=== PATIENT | male | born 1950 | race Caucasian/White ===

== ENCOUNTER 2024-02-04 14:39 | Inpatient (IN) ==
[2024-02-04] MEDS: oxyCODONE IR 5 MG TABLET PO ONE (16:42)
[2024-02-04] MEDS: ACETAMINOPHEN 325 MG TABLET PO ONE (16:42)
[2024-02-04 17:29] LABS: Appearance,Urine Cloudy (Clear); Bilirubin,Urine Negative (Negative); Color,Urine Yellow; Culture Indicated,Urine No; Glucose,Urine (UA) Negative (Negative); Ketones,Urine Negative (Negative); Leukocyte Esterase,Urine Small /uL (Negative); Nitrate,Urine Negative (Negative); PH,Urine 5.5 (5.0-9.0); Protein,Urine Negative (Negative); Specific Gravity,Urine 1.015 (1.000-1.035); Urine Blood Negative ery/mcL (Negative); Urine Hyaline Cast 16 /lph (0-2); Urine RBC 1 /hpf (0-3); Urine Squamous Epithelial Cell 6 /hpf (0-4); Urine WBC 5 /hpf (0-4); Urobilinogen,Urine Normal
[2024-02-04 17:31] LABS: Basophils # (Auto) 0.04 K/mcL (0.00-0.30); Basophils % (Auto) 0.3 % (0.0-2.0); Eosinophils # (Auto) 0.01 K/mcL (0.00-0.70); Eosinophils % (Auto) 0.1 % (0.0-7.0); Hematocrit 42.9 % (40.1-51.0); Hemoglobin 13.3 g/dL (13.7-17.5); Lymphocytes # (Auto) 1.28 K/mcL (1.50-4.80); Lymphocytes % (Auto) 9.9 % (15.5-49.0); Mean Cell Volume 89.9 fL (80.0-100.0); Mean Platelet Volume 10.1 fL (8.8-12.5); Monocytes # (Auto) 1.47 K/mcL (0.10-0.90); Monocytes % (Auto) 11.4 % (1.0-12.0); Neutrophils % (Auto) 78.1 % (38.0-78.0); Platelet Count 248 K/mcL (140-440); RBC 4.77 M/mcL (4.63-6.08); Red Cell Distribution Width 14.4 % (11.5-14.5)
[2024-02-04 17:49] LABS: Blood Urea Nitrogen 25 mg/dL (8-23); Calcium 8.9 mg/dL (8.6-10.4); Carbon Dioxide 21 mmol/L (22-30); Chloride 97 mmol/L (96-108); Glomerular Filtration Rate 46; Glucose 125 mg/dL (70-105); Potassium 4.8 mmol/L (3.3-5.1); Sodium 130 mmol/L (133-145)
[2024-02-04] MEDS: CEPHALEXIN 250 MG CAPSULE PO ONE (18:02)
[2024-02-04] MEDS: 0.9 % SODIUM CHLORIDE 1,000 ML IV ONE (18:02)
[2024-02-04 19:35] LABS: INR 2.6 (0.9-1.1); Prothrombin Time 28.8 sec (11.9-14.5)
[2024-02-04 19:37] LABS: Creatine Kinase 95 U/L (24-195)
[2024-02-04] MEDS ORDERED: IPRATROPIUM/ALBUTEROL 3 ML AMPUL.NEB NEB PRN (20:12)
[2024-02-04] MEDS ORDERED: ONDANSETRON 4 MG/2 ML VIAL IV PRN (20:12)
[2024-02-04] MEDS ORDERED: DEXTROSE 31 GM ORAL.SUSP PO PRN (20:12)
[2024-02-04] MEDS ORDERED: traZODone HCL 50 MG TABLET PO PRN (20:12)
[2024-02-04] MEDS ORDERED: DEXTROSE 50% 50 ML VIAL IV PRN (20:12)
[2024-02-04] MEDS: SENNOSIDES 1 TABLET PO SCH (21:10)
[2024-02-04] MEDS: 0.9 % SODIUM CHLORIDE 1,000 ML IV SCH (21:10)
[2024-02-04] MEDS: DOCUSATE SODIUM 100 MG CAPSULE PO SCH (21:10)
[2024-02-04] MEDS: 0.9 % SODIUM CHLORIDE 10 ML SYRINGE IV SCH (21:12)
[2024-02-04] MEDS: INSULIN LISPRO 1 UNIT/0.01 ML UNIT SQ SCH (21:12)
[2024-02-04] MEDS: cefTRIAXone 1 GM VIAL IV SCH (21:38)
[2024-02-04] MEDS: WARFARIN 2.5 MG TABLET PO ONE (23:14)
[2024-02-05] MEDS: oxyCODONE IR 5 MG TABLET PO PRN (04:52)
[2024-02-05] MEDS: IBUPROFEN 600 MG TABLET PO PRN (06:07)
[2024-02-05 06:46] LABS: Basophils # (Auto) 0.05 K/mcL (0.00-0.30); Basophils % (Auto) 0.4 % (0.0-2.0); Eosinophils # (Auto) 0.08 K/mcL (0.00-0.70); Eosinophils % (Auto) 0.7 % (0.0-7.0); Hemoglobin 12.7 g/dL (13.7-17.5); Lymphocytes # (Auto) 1.28 K/mcL (1.50-4.80); Lymphocytes % (Auto) 11.4 % (15.5-49.0); Mean Cell Volume 86.7 fL (80.0-100.0); Mean Corpuscular HGB Conc 32.6 g/dL (31.0-36.0); Mean Platelet Volume 10.2 fL (8.8-12.5); Monocytes # (Auto) 1.22 K/mcL (0.10-0.90); Monocytes % (Auto) 10.9 % (1.0-12.0); Neutrophils % (Auto) 76.2 % (38.0-78.0); Platelet Count 238 K/mcL (140-440); Red Cell Distribution Width 14.2 % (11.5-14.5); WBC 11.2 K/mcL (4.5-11.0)
[2024-02-05 07:06] LABS: ALT/SGPT 11 U/L (<40); AST/SGOT 22 U/L (<40); Albumin 3.8 gm/dL (3.2-5.2); Albumin/Globulin Ratio 1.3 (1.0-2.3); Alkaline Phosphatase 63 U/L (39-117); Bilirubin,Total 1.9 mg/dL (0.1-1.0); Blood Urea Nitrogen 22 mg/dL (8-23); Calcium 8.6 mg/dL (8.6-10.4); Carbon Dioxide 21 mmol/L (22-30); Chloride 99 mmol/L (96-108); Globulin 2.9 gm/dL (2.2-3.7); Glomerular Filtration Rate 60; Glucose 120 mg/dL (70-105); Potassium 4.4 mmol/L (3.3-5.1); Sodium 133 mmol/L (133-145)
[2024-02-05 07:26] LABS: INR 2.4 (0.9-1.1); Prothrombin Time 27.6 sec (11.9-14.5)
[2024-02-05 07:40] LABS: Estimated Average Glucose(eAG) 131 mg/dL; Hemoglobin A1C 6.2 % Hgb (4.0-6.0)
[2024-02-05] MEDS ORDERED: NON FORMULARY MEDICATION 1 DOSE MISCELL (Acetaminophen 500 mg capsule) PO PRN (12:10)
[2024-02-05] MEDS ORDERED: ALBUTEROL SULFATE 60 PUFF INHALER INH PRN (12:14)
[2024-02-05] MEDS ORDERED: WARFARIN 5 MG TABLET PO SCH (12:15)
[2024-02-05] MEDS: IPRATROPIUM 2.5 ML AMPUL.NEB INH SCH (13:05)
[2024-02-05] MEDS: WARFARIN 5 MG TABLET PO ONE (14:12)
[2024-02-05] MEDS: ACETAMINOPHEN 325 MG TABLET PO PRN (14:16)
[2024-02-05] MEDS ORDERED: IOPAMIDOL 100 ML BOTTLE IV ONE (17:37)
[2024-02-05] MEDS: ATORVASTATIN 20 MG TABLET PO SCH (20:40)
[2024-02-05] MEDS: Budesonide-Glycopyr-Formoterol [Breztri Aerosphere] Inhaler INH SCH (20:41)
[2024-02-06 06:50] LABS: Basophils # (Auto) 0.07 K/mcL (0.00-0.30); Basophils % (Auto) 0.8 % (0.0-2.0); Eosinophils # (Auto) 0.24 K/mcL (0.00-0.70); Eosinophils % (Auto) 2.7 % (0.0-7.0); Hematocrit 37.7 % (40.1-51.0); Hemoglobin 12.2 g/dL (13.7-17.5); Lymphocytes # (Auto) 1.27 K/mcL (1.50-4.80); Lymphocytes % (Auto) 14.1 % (15.5-49.0); Mean Cell Volume 87.3 fL (80.0-100.0); Mean Corpuscular HGB Conc 32.4 g/dL (31.0-36.0); Mean Platelet Volume 10.3 fL (8.8-12.5); Monocytes # (Auto) 0.91 K/mcL (0.10-0.90); Monocytes % (Auto) 10.1 % (1.0-12.0); Neutrophils % (Auto) 72.1 % (38.0-78.0); Platelet Count 245 K/mcL (140-440); RBC 4.32 M/mcL (4.63-6.08); Red Cell Distribution Width 14.3 % (11.5-14.5)
[2024-02-06 06:53] LABS: INR 2.8 (0.9-1.1); Prothrombin Time 30.3 sec (11.9-14.5)
[2024-02-06 07:24] LABS: ALT/SGPT 15 U/L (<40); AST/SGOT 27 U/L (<40); Albumin 3.4 gm/dL (3.2-5.2); Albumin/Globulin Ratio 1.1 (1.0-2.3); Alkaline Phosphatase 66 U/L (39-117); Bilirubin,Total 0.8 mg/dL (0.1-1.0); Blood Urea Nitrogen 21 mg/dL (8-23); Calcium 8.8 mg/dL (8.6-10.4); Carbon Dioxide 24 mmol/L (22-30); Chloride 101 mmol/L (96-108); Globulin 3.2 gm/dL (2.2-3.7); Glomerular Filtration Rate 66; Glucose 109 mg/dL (70-105); Sodium 135 mmol/L (133-145)
[2024-02-06] MEDS: LEVOTHYROXINE 150 MCG TABLET PO SCH (07:38)
[2024-02-06] MEDS: LEVOTHYROXINE 25 MCG TABLET PO SCH (07:38)
[2024-02-06] MEDS ORDERED: LEVOTHYROXINE SODIUM 175 MCG TABLET PO SCH (09:00)
[2024-02-06] MEDS: LOSARTAN 50 MG TABLET PO SCH (10:04)
[2024-02-06] MEDS: BISOPROLOL 5 MG TABLET PO SCH (10:05)
[2024-02-06] MEDS: FINASTERIDE 5 MG TABLET PO SCH (10:05)
[2024-02-06] MEDS: WARFARIN 2.5 MG TABLET PO ONE (14:28)
[2024-02-06] MEDS: FUROSEMIDE 40 MG TABLET PO SCH (20:41)
[2024-02-06] MEDS: guaiFENesin 600 MG TAB.SR.12H PO PRN (20:41)
[2024-02-07 07:02] LABS: Basophils # (Auto) 0.04 K/mcL (0.00-0.30); Basophils % (Auto) 0.5 % (0.0-2.0); Eosinophils # (Auto) 0.27 K/mcL (0.00-0.70); Eosinophils % (Auto) 3.3 % (0.0-7.0); Hemoglobin 12.2 g/dL (13.7-17.5); Lymphocytes # (Auto) 1.18 K/mcL (1.50-4.80); Lymphocytes % (Auto) 14.6 % (15.5-49.0); Mean Cell Volume 85.6 fL (80.0-100.0); Mean Platelet Volume 10.1 fL (8.8-12.5); Monocytes % (Auto) 9.9 % (1.0-12.0); Neutrophils % (Auto) 71.3 % (38.0-78.0); Platelet Count 282 K/mcL (140-440); RBC 4.32 M/mcL (4.63-6.08); WBC 8.1 K/mcL (4.5-11.0)
[2024-02-07 07:06] LABS: INR 2.6 (0.9-1.1); Prothrombin Time 28.8 sec (11.9-14.5)
[2024-02-07 07:34] LABS: ALT/SGPT 23 U/L (<40); AST/SGOT 36 U/L (<40); Albumin 3.4 gm/dL (3.2-5.2); Albumin/Globulin Ratio 1.1 (1.0-2.3); Alkaline Phosphatase 72 U/L (39-117); Bilirubin,Total 0.8 mg/dL (0.1-1.0); Blood Urea Nitrogen 16 mg/dL (8-23); Calcium 8.8 mg/dL (8.6-10.4); Carbon Dioxide 23 mmol/L (22-30); Chloride 100 mmol/L (96-108); Globulin 3.1 gm/dL (2.2-3.7); Glomerular Filtration Rate 74; Glucose 99 mg/dL (70-105); Potassium 4.4 mmol/L (3.3-5.1); Sodium 134 mmol/L (133-145)
[2024-02-07] MEDS: SPIRONOLACTONE 25 MG TABLET PO SCH (08:15)
[2024-02-07] MEDS ORDERED: WARFARIN 2.5 MG TABLET PO SCH (14:00)
[2024-02-07] MEDS: WARFARIN 2 MG TABLET PO SCH (15:26)
== END 2024-02-07 15:40 | disposition home or self-care (01) | DRG 683 ==
LOC: MEDSUR 14:39 → ED 14:39 → MEDSUR 20:12
PROVIDERS: ADMIT Internal Medicine; ATTEND Internal Medicine